=== PATIENT | female | born 1965 | race Caucasian/White ===

== ENCOUNTER 2019-05-30 14:55 | Emergency (ER) | payer OTHER ==
[~2019-05-30] VITALS: Ht 167.6 cm; Wt 91.6 kg
[2019-05-30] MEDS ORDERED: LEXAPRO5 MG PO (15:24)
[2019-05-30] MEDS ORDERED: COUMADIN6 MG PO (15:24)
== END 2019-05-30 19:37 | disposition home or self-care (01) ==
LOC: ER 14:55
DX: L03.011 Cellulitis of right finger (principal)

== ENCOUNTER 2020-01-13 08:42 | Outpatient (CLI) | payer OTHER ==
[~2020-01-13 08:42] MED LIST: COUMADIN6 MG PO; LEXAPRO5 MG PO
== END 2020-01-13 08:52 | disposition home or self-care (01) ==
LOC: SONOGRAMA 08:42
PROVIDERS: ATTEND Pathology Anatomic Pathology & Clinical Pathology
DX: E04.8 Other specified nontoxic goiter (principal)

== ENCOUNTER 2020-12-16 10:55 | Outpatient (CLI) | payer OTHER | END 2020-12-16 11:05 | disposition home or self-care (01) | LOC: LAB 10:55 | PROVIDERS: ATTEND Internal Medicine Cardiovascular Disease | DX: D64.89 Other specified anemias (principal); R10.84 Generalized abdominal pain; E03.8 Other specified hypothyroidism; E78.49 Other hyperlipidemia; R07.89 Other chest pain; I50.22 Chronic systolic (congestive) heart failure; Z79.01 Long term (current) use of anticoagulants; G47.39 Other sleep apnea; J45.909 Unspecified asthma, uncomplicated; Q21.8 Other congenital malformations of cardiac septa ==

== ENCOUNTER 2021-02-23 16:54 | Emergency (ER) | payer OTHER ==
[~2021-02-23] VITALS: Ht 167.6 cm; Wt 95.3 kg
[2021-02-23] MEDS ORDERED: MEDROLPACK PO (19:05)
[2021-02-23] MEDS ORDERED: ULTRAM50 MG PO (19:05)
== END 2021-02-23 19:27 | disposition home or self-care (01) ==
LOC: ER 16:54
DX: H66.92 Otitis media, unspecified, left ear (principal); H60.92 Unspecified otitis externa, left ear; B95.2 Enterococcus as the cause of diseases classified elsewhere

== ENCOUNTER → 2021-08-14 | Outpatient (CLI) | payer OTHER ==
[~2021-08-14] MED LIST changes: +MEDROLPACK PO; +ULTRAM50 MG PO
== END | disposition home or self-care (01) ==
LOC: NUCLEAR 07:30
PROVIDERS: ATTEND Internal Medicine Cardiovascular Disease
DX: R07.1 Chest pain on breathing (principal); Q21.1 Atrial septal defect; G47.30 Sleep apnea, unspecified
CPT/HCPCS: 78452; 93017; A9500

== ENCOUNTER 2021-09-05 15:13 | Outpatient (CLI) | payer OTHER | END 2021-09-05 15:19 | disposition home or self-care (01) | LOC: RAD 15:13 | PROVIDERS: ATTEND Family Medicine | DX: M54.6 Pain in thoracic spine (principal) ==

== ENCOUNTER 2022-04-04 15:38 | Emergency (ER) | payer OTHER ==
[~2022-04-04] VITALS: Ht 167.6 cm; Wt 102.1 kg
[2022-04-04] MEDS ORDERED: AMPHETAMINE SALT5 MG PO (15:48)
[2022-04-04] MEDS ORDERED: ESCITALOPRAM OX20 MG PO (15:48)
[2022-04-04] MEDS ORDERED: BUSPIRONE HCL5 MG PO (15:48)
[2022-04-04] MEDS ORDERED: FOLIC ACID1 MG PO (15:48)
[2022-04-04] MEDS ORDERED: METHOTREXATE2.5 MG PO (15:49)
[2022-04-04] MEDS ORDERED: HYDROXYCHLOROQ200 MG PO (15:49)
== END 2022-04-04 19:26 | disposition home or self-care (01) ==
LOC: ER 15:38
DX: U07.1 COVID-19 (principal); B34.9 Viral infection, unspecified; Z88.0 Allergy status to penicillin; Z88.6 Allergy status to analgesic agent

== ENCOUNTER 2022-04-15 13:04 | Emergency (ER) | payer OTHER ==
[~2022-04-15] VITALS: Ht 167.6 cm; Wt 99.8 kg
[~2022-04-15 13:04] MED LIST changes: +AMPHETAMINE SALT5 MG PO; +BUSPIRONE HCL5 MG PO; +ESCITALOPRAM OX20 MG PO; +FOLIC ACID1 MG PO; +HYDROXYCHLOROQ200 MG PO; +METHOTREXATE2.5 MG PO
[2022-04-15] MEDS ORDERED: JANTOVEN6 MG (13:51)
== END 2022-04-15 21:09 | disposition home or self-care (01) ==
LOC: ER 13:04
DX: B34.9 Viral infection, unspecified (principal); F32.A Depression, unspecified; Z88.0 Allergy status to penicillin; Z88.6 Allergy status to analgesic agent; Z88.8 Allergy status to other drugs, medicaments and biological substances; Z20.822 Contact with and (suspected) exposure to COVID-19

== ENCOUNTER 2022-10-10 12:21 | Outpatient (CLI) | payer OTHER ==
[~2022-10-10 12:21] MED LIST changes: +JANTOVEN6 MG
== END 2022-10-10 12:22 | disposition home or self-care (01) ==
LOC: LAB 12:21
PROVIDERS: ATTEND Radiology Diagnostic Radiology
DX: R22.1 Localized swelling, mass and lump, neck (principal)

== ENCOUNTER 2022-10-14 07:27 | Outpatient (CLI) | payer OTHER | END 2022-10-14 07:41 | disposition home or self-care (01) | LOC: TOM 07:27 | PROVIDERS: ATTEND Otolaryngology | DX: R10.10 Upper abdominal pain, unspecified (principal); R22.1 Localized swelling, mass and lump, neck ==

== ENCOUNTER 2023-11-09 21:27 | Emergency (ER) | payer OTHER ==
[~2023-11-09] VITALS: Ht 167.6 cm; Wt 98.0 kg
[2023-11-09] MEDS ORDERED: CEREFOLIN CAPL1 EACH IV (21:36)
[2023-11-09] MEDS ORDERED: MOUNJARO2.5 MG/0.5 SQ (21:37)
[2023-11-10] MEDS ORDERED: CLINDAMYCIN PHOSPHATE 150 MG/ML (900mg) IV STA (00:28)
[2023-11-10] MEDS ORDERED: ACETAMINOPHEN 500 MG GEL..CAP PO STA (00:28)
[2023-11-10] MEDS ORDERED: CLINDAMYCIN PHOSPHATE 150 MG/ML (900mg) ONE (00:32)
[2023-11-10] MEDS ORDERED: ACETAMINOPHEN 500 MG GEL..CAP PO ONE (00:32)
[2023-11-10 01:46] LABS: HEMOGLOBIN 12.4 g/dL (12.0-15.00); MEAN CELL VOLUME 88.1 fL (80.00-100.00); MEAN CORPUSCULAR HEMOGLOBIN 29.6 pg (27.00-32.0); MEAN CORPUSCULAR HGB CONC 33.7 g/dl (32.0-36.0); PLATELET COUNT 269 K/uL (150-450); RED CELL DISTRIBUTION WIDTH 15.4 % (11.5-14.5)
[2023-11-10] MEDS ORDERED: CLEOCIN HCL300 MG PO (02:06)
== END 2023-11-10 02:16 ==
LOC: ER 21:28
PROVIDERS: General Practice
DX: S67.01XA Crushing injury of right thumb, initial encounter (principal); X58.XXXA Exposure to other specified factors, initial encounter; Y93.89 Activity, other specified; Y92.89 Other specified places as the place of occurrence of the external cause; Y99.9 Unspecified external cause status; L08.9 Local infection of the skin and subcutaneous tissue, unspecified; Z88.6 Allergy status to analgesic agent; Z88.0 Allergy status to penicillin; Z88.8 Allergy status to other drugs, medicaments and biological substances; G47.30 Sleep apnea, unspecified

== ENCOUNTER 2024-06-18 06:17 | Outpatient (CLI) | payer OTHER ==
[~2024-06-18 06:17] MED LIST changes: +CEREFOLIN CAPL1 EACH IV; +CLEOCIN HCL300 MG PO; +MOUNJARO2.5 MG/0.5 SQ
[2024-06-18 08:17] LABS: INR 1.17; PARTIAL THROMBOPLASTIN TIME 30.4 SECONDS (22.0-34.0); PROTHROMBIN TIME 12.6 SECONDS (9.0-11.5)
[2024-06-18] MEDS ORDERED: AYR SALINE50 M2 NASAL (10:20)
[2024-06-18] MEDS ORDERED: CLEOCIN HCL300 MG PO (10:21)
== END 2024-06-18 06:18 | disposition home or self-care (01) ==
LOC: LAB 06:17
PROVIDERS: ATTEND Internal Medicine
DX: D64.9 Anemia, unspecified (principal)

== ENCOUNTER 2024-06-18 06:51 | Day surgery (SDC) | payer OTHER ==
[2024-06-11 11:44] VITALS: BP 107/76
[2024-06-11 11:46] LABS: URINE APPEARANCE Cloudy; URINE BILIRRUBIN Negative (NEGATIVE); URINE BLOOD Negative; URINE COLOR Yellow; URINE GLUCOSE Negative (NEGATIVE); URINE KETONE Trace (NEGATIVE); URINE LEUKOCYTE Negative; URINE NITRATE Negative; URINE PROTEIN Trace (NEGATIVE)
[2024-06-11 11:48] LABS: HEMATOCRIT 39.9 % (36.0-45.00); HEMOGLOBIN 12.9 g/dL (12.0-15.00); MEAN CELL VOLUME 89.7 fL (80.00-100.00); MEAN CORPUSCULAR HGB CONC 32.3 g/dl (32.0-36.0); PLATELET COUNT 231 K/uL (150-450); RED BLOOD COUNT 4.45 M/uL (4.00-6.00); RED CELL DISTRIBUTION WIDTH 14.6 % (11.5-14.5)
[2024-06-11 11:51] LABS: URINE BACTERIA 3511.5 uL (0.0-1933); URINE EPITHELIAL CELLS 100.3 uL (0.0-38.8); URINE RBC 52.4 uL (0.0-20.8)
[2024-06-11 12:03] LABS: INR 2.22; PARTIAL THROMBOPLASTIN TIME 37.5 SECONDS (22.0-34.0)
[2024-06-11 12:04] LABS: PROTHROMBIN TIME 22.8 SECONDS (9.0-11.5)
[2024-06-11 12:54] LABS: ALBUMIN 3.5 gm/dL (3.4-5.0); CALCIUM 8.9 mg/dL (8.5-10.1); CREATININE SERUM 0.73 mg/dL (0.55-1.02); GFR 82.47; POTASSIUM 4.28 mEq/L (3.5-5.1)
[~2024-06-18] VITALS: Ht 167.6 cm; Wt 93.0 kg
[2024-06-18] MEDS ORDERED: AYR SALINE50 M2 NASAL (10:20)
[2024-06-18] MEDS ORDERED: CLEOCIN HCL300 MG PO (10:21)
[2024-06-18] MEDS ORDERED: LIDOCAINE HCL 1%/EPINEPHRINE 20ML VIAL IJ ONE (10:45)
[2024-06-18] MEDS ORDERED: CLINDAMYCIN PHOSPHATE 150 MG/ML (600mg) IV SCH (10:45)
[2024-06-18] MEDS ORDERED: OXYMETAZOLINE HCL 15 ML NASAL DROPS NASAL ONE (10:45)
== END 2024-06-18 12:55 | disposition home or self-care (01) ==
LOC: CIR.AMB 06:51
PROVIDERS: ATTEND Otolaryngology Otology & Neurotology
DX: J34.2 Deviated nasal septum (principal); J34.3 Hypertrophy of nasal turbinates; Z88.6 Allergy status to analgesic agent; Z88.0 Allergy status to penicillin; J45.909 Unspecified asthma, uncomplicated

== ENCOUNTER 2025-01-18 11:18 | Emergency (ER) | payer OTHER ==
[~2025-01-18] VITALS: Ht 167.6 cm; Wt 83.9 kg
[~2025-01-18 11:18] MED LIST changes: +AYR SALINE50 M2 NASAL
[2025-01-18] MEDS ORDERED: OZEMPIC2 MG/0.75 (12:06)
[2025-01-18] MEDS ORDERED: CLINDAMYCIN PHOSPHATE 150 MG/ML (900mg) ONE (12:50)
[2025-01-18] MEDS ORDERED: CLINDAMYCIN PHOSPHATE 600 MG in DEXTROSE 5 % IN WATER 50 ML IV ONE (13:00)
[2025-01-18] MEDS ORDERED: ORPHENADRINE CITRATE 100 MG TABLET PO ONE (13:00)
[2025-01-18] MEDS ORDERED: CLEOCIN HCL300 MG PO (15:25)
== END 2025-01-18 15:52 | disposition home or self-care (01) ==
LOC: ER 11:18
DX: L03.90 Cellulitis, unspecified (principal); G89.11 Acute pain due to trauma; M79.644 Pain in right finger(s); Z88.0 Allergy status to penicillin; Z88.6 Allergy status to analgesic agent

== ENCOUNTER 2025-02-10 10:17 | Outpatient (CLI) | payer OTHER ==
[~2025-02-10 10:17] MED LIST changes: +OZEMPIC2 MG/0.75
== END 2025-02-10 10:19 | disposition home or self-care (01) ==
LOC: SONOGRAMA 10:17
PROVIDERS: ATTEND Pathology Anatomic Pathology & Clinical Pathology
DX: D34 Benign neoplasm of thyroid gland (principal); E07.89 Other specified disorders of thyroid; E04.1 Nontoxic single thyroid nodule

== ENCOUNTER → 2025-03-05 | Emergency (ER) | payer OTHER ==
[~2025-03-05] VITALS: Ht 152.4 cm; Wt 81.6 kg
[~2025-03-05] MED LIST changes: +CEFDINIR300 MG PO; +CLINDAMYCIN HC300 MG PO; +DOXYCYCLINE HYCLATE 100MG IV ONE; +MORPHINE SULFATE 4 MG/ML CARTRIDGE IV ONE; +TYLENOL ARTHRI650 MG PO
[2025-03-06 00:47] LABS: BASO % 0.5 % (0.1-1.2); EOS # 0.07 (0.04-0.54); EOS % 1.9 % (0.7-7.0); LYMPH # 2.24 (1.18-3.74); LYMPH % 60.4 % (19.3-53.1); MEAN PLATELET VOLUME 9.00 fl (9.4-12.4); MONO # 0.28 (0.24-0.82); MONO % 7.5 % (4.7-12.5); NEUT # 1.10 (1.56-6.13); NEUT % 29.7 % (34.0-71.1); RED CELL DISTRIBUTION WIDTH 12.1 % (11.6-14.4)
[2025-03-06 01:06] LABS: BUN CREA RATIO 13.0 (7.0-25.0); CREATININE SERUM 0.78 mg/dL (0.55-1.02); GFR 76.12; GLUCOSE FASTING 69.0 mg/dL (65-100); OSMOLALITY SERUM 281.0 MOSM/KG (275-295)
== END | disposition home or self-care (01) ==
LOC: ER 19:35
PROVIDERS: Student in an Organized Health Care Education/Training Program
DX: S61.451A Open bite of right hand, initial encounter (principal); W55.01XA Bitten by cat, initial encounter; Y93.89 Activity, other specified; Y92.89 Other specified places as the place of occurrence of the external cause; Y99.8 Other external cause status; Z88.0 Allergy status to penicillin; Z88.6 Allergy status to analgesic agent; Z88.8 Allergy status to other drugs, medicaments and biological substances